=== PATIENT | male | born 1955 | race Caucasian/White ===

== ENCOUNTER 2016-04-13 08:17 | Day surgery (SDC) | payer MEDICAID ==
[~2016-04-13] VITALS: Ht 167.6 cm; Wt 90.3 kg
[2016-04-13] MEDS ORDERED: LIDOCAINE 2% 100 MG/5 ML UJET TP ONE (10:39)
[2016-04-13] MEDS ORDERED: fentaNYL 0.05 MG/ML VIAL ONE (10:39)
[2016-04-13] MEDS ORDERED: MIDAZOLAM 2 MG/2 ML VIAL ONE (10:39)
== END 2016-04-13 12:00 | disposition home or self-care (01) ==
LOC: MDS 08:17 → MMU 08:23 → MDS 12:00
PROVIDERS: ATTEND Internal Medicine Gastroenterology
DX: Z12.11 Encounter for screening for malignant neoplasm of colon (principal); D12.3 Benign neoplasm of transverse colon; K64.8 Other hemorrhoids; K57.30 Diverticulosis of large intestine without perforation or abscess without bleeding; K21.9 Gastro-esophageal reflux disease without esophagitis